=== PATIENT | female | born 1970 | race American Indian/Alaskan Native ===

== ENCOUNTER 2018-12-26 11:27 | Emergency (ER) | payer BC, OTHER ==
[~2018-12-26] VITALS: Ht 160 cm; Wt 84.4 kg
--- OUTSIDE RECORDS SUMMARY | ~2018-12-26 | XMS | Clinical Summary ---
Demographics + + + | Address | [address] | | | [place] [address] | + + + | Home Phone | | + + + | Preferred Language | Unknown | + + + | Marital Status | | + + + | Hindu Affiliation | Unknown | + + + | Race | Unknown | + + + | Ethnic Group | Unknown | + + + Author + + + | Author | [facility] [employer] [facility] | + + + | Organization | [facility] | + + + | Address | Unknown | + + + | Phone | Unavailable | + + + Support + + +---------+ + | Name | Relationship | Address | Phone | + + +---------+ + | Angie Rosas | ECON | Unknown | | + + +---------+ + | Anabell Ruiz | ECON | Unknown | | + + +---------+ + | Mayelin Muniz | ECON | Unknown | | + + +---------+ + | Detailed,Message | ECON | Unknown | | + + +---------+ + Care Team Providers + +------+ + | Care Smoking Tobacco Packer Hand Name | Role | Phone | + +------+ + | Deay Rubin | PP | | + +------+ + Allergies + + + + + + | Active Allergy | Reactions | Severity | Noted | Comments | | | | | Date | | + + + + + + | Codeine | Itching | Medium | 03/10/20 | | | | | | 18 | | + + + + + + Current Medications + + +--------+---------+------+------+-------+ | Prescription | Sig. | Disp. | Refills | Star | End | Statu | | | | | | t | Date | s | | | | | | Date | | | + + +--------+---------+------+------+-------+ | desmopressin 0.01 | 1 spray by Nasal | 1 | 11 | / | | Activ | | % SOLN | route 3 (three) | Bottle | | 2/20 | | e | | | times daily. | | | 18 | | | + + +--------+---------+------+------+-------+ Active Problems + + + | Problem | Noted Date | + + + | Empty sella | 04/22/2016 | + + + | Acquired hypothyroidism | 04/22/2016 | + + + | Diabetes insipidus (HCC) | 04/22/2016 | + + + Family History + + +------+ + | Medical History | Relation | Name | Comments | + + +------+ + | Cancer | Neg Hx | | | + + +------+ + | Diabetes type II | Neg Hx | | | + + +------+ + | Heart disease | Neg Hx | | | + + +------+ + Social History + +-------+ +--------+ + | Tobacco Use | Types | Packs/Day | Years | Date | | | | | Used | | + +-------+ +--------+ + | Former Smoker | | | | Quit: 04/22/2009 | + +-------+ +--------+ + + + +---------+ + | Alcohol Use | Drinks/We | oz/Week | Comments | | | ek | | | + + +---------+ + | Yes | | | rare | + + +---------+ + + + + | Sex Assigned at | Date Recorded | | | | + + + | Not on file | | + + + Last Filed Vital Signs + + + + | Vital Sign | Reading | Time Taken | + + + + | Blood Pressure | 120/82 | 03/10/2018 8:14 AM PDT | + + + + | Pulse | 65 | 03/10/2018 8:14 AM PDT | + + + + | Temperature | - | - | + + + + | Respiratory Rate | - | - | + + + + | Oxygen Saturation | 96% | 03/10/2018 8:14 AM PDT | + + + + | Inhaled Oxygen | - | - | | Concentration | | | + + + + | Weight | 83.9 kg (184 lb 14.4 | 03/10/2018 8:14 AM PDT | | | oz) | | + + + + | Height | - | - | + + + + | Body Mass Index | - | - | + + + + Plan of Treatment + + + + + | Health Maintenance | Due Date | Last Done | Comments | + + + + + | Vaccine: | | | | | Dtap/Tdap/Td (1 - | 9 | | | | Tdap) | | | | + + + + + | Cervical Cancer | | | | | Screening (Pap) | 0 | | | + + + + + | Vaccine: Influenza | | | | | (Season Ended) | 9 | | | + + + + + Results Not on filefrom Last 3 Months Insurance + +--------+ +------+-------+ + | Payer | Benefi | Subscriber | Type | Phone | Address | | | t Plan | ID | | | | | | / | | | | | | | Group | | | | | + +--------+ +------+-------+ + | /[facility] | YELLOW | [id number] | | | | | PLANS | [place] | | | | | + +--------+ +------+-------+ + | PREMERA | PREMER | [id number] | | | [address] [address] | | | A BLUE | | | | [place], [place] | | | [place]OSS | | | | [phone] | | | FED | | | | | | | PPO | | | | | + +--------+ +------+-------+ + + +--------+ +--------+ + + | Guarantor Name | Accoun | Relation to | Date | Phone | Billing Address | | | t Type | Patient | of | | | | | | | | | | + +--------+ +--------+ + + | LLOYD MUNIZ | Person | Self [birth year] | Home: | [address] | | [address] | | 1971 | [phone] | [place] [address] | | | josh | | | [phone] | | + +--------+ +--------+ + +"
--- OUTSIDE RECORDS SUMMARY | ~2018-12-26 | XMS | Clinical Summary ---
Demographics + + + | Address | [address] | | | [place] [address] | + + + | Home Phone | | + + + | Preferred Language | Unknown | + + + | Marital Status | | + + + | Latter Day Affiliation | Unknown | + + + | Race | Unknown | + + + | Ethnic Group | Unknown | + + + Author + + + | Author | [facility] | | | and [facility] | + + + | Organization | [facility] | | | and [facility] | + + + | Address | Unknown | + + + | Phone | Unavailable | + + + Care Team Providers + +------+ + | Care Fish Grader Name | Role | Phone | + +------+ + PP | Unavailable | + +------+ + Allergies Not on File Medications Not on file Active Problems Not on file Social History + +-------+ +--------+------+ | Tobacco Use | Types | Packs/Day | Years | Date | | | | | Used | | + +-------+ +--------+------+ | Never Assessed | | | | | + +-------+ +--------+------+ + + + | Sex Assigned at | Date Recorded | | | | + + + | Not on file | | + + + + + + + | Job Start Date | Occupation | Industry | + + + + | Not on file | Not on file | Not on file | + + + + + + + + | Travel History | Travel Start | Travel End | + + + + + + | No recent travel history available. | + + Plan of Treatment + + [...] + Results Not on filefrom Last 3 Months"
--- OUTSIDE RECORDS SUMMARY | ~2018-12-26 | XMS | Clinical Summary ---
Demographics + + + | Address | [address] | | | [place] [address] | + + + | Home Phone | | + + + | Preferred Language | Unknown | + + + | Marital Status | | + + + | Christian Affiliation | Unknown | + + + | Race | Unknown | + + + | Ethnic Group | Unknown | + + + Author + + + | Author | [facility] | | | and [facility] | + + + | Organization | [facility] | | | and [facility] | + + + | Address | Unknown | + + + | Phone | Unavailable | + + + Care Team Providers + +------+ + | Care Syrup Filterer Name | Role | Phone | + [...]
--- OUTSIDE RECORDS SUMMARY | ~2018-12-26 | XMS | Clinical Summary ---
Demographics + + + | Address | [address] | | | [place] [address] | + + + | Home Phone | | + + + | Preferred Language | Unknown | + + + | Marital Status | | + + + | Voodoo Affiliation | Unknown | + + + | Race | Unknown | + + + | Ethnic Group | Unknown | + + + Author + + + | Author | [facility] [employer] [facility] | + + + | Organization | [facility] | + + + | [...] Team Providers + +------+ + | Care Pebble Mill Operator Name | Role | Phone | + +------+ + | Deya Rubin | PP | | + +------+ [...] | | + +--------+ +------+-------+ + | /[employer] | YELLOW | [id number] | | | | | PLANS | [place] | | | | | + +--------+ +------+-------+ + | [employer] | PREMER | [id number] | | | [address] [address] | | | A BLUE | | | | [place], [place] | | | CROSS | | | | [phone] | | | FED | | | [...] | | al/[address]orge | | 1971 | [phone] | [place] [address] | | | josh | | | [address] | | + +--------+ +--------+ + +"
[~2018-12-26 11:27] MED LIST: DDAVP 0.0110 MCG/0.1 NAS; LEVOTHYROXINE25 MCG PO; ORTHO EVRA PAT1 EACH TD; VITAMIN D350000 UNIT PO
--- NOTE | 2018-12-26 14:01 | EKG ---
[facility] [address] [place] [address] Signed Sinus tachycardia Nonspecific ST abnormality Abnormal ECG When compared with ECG of 26-DEC-2018 11:40, (Unconfirmed) Vent. rate has decreased BY [address] less depressed in Inferior leads ST less depressed in Anterolateral leads Nonspecific T wave abnormality no longer evident in Inferior leads Nonspecific T wave abnormality no longer evident in Lateral leads Confirmed by RUBIN SCHMIDT MD ([id number]) on 12/26/2018 2:01:17 PM Electronically Signed By: RUBIN SCHMIDT MD 12/26/18 1401 PATIENT NAME: BRANDEN NEAL Electrocardiogram DATE OF : 68 PHYSICIAN: RUBIN SCHMIDT MD REPORT #: [id number] REPORT IS CONFIDENTIAL AND NOT TO BE RELEASED WITHOUT AUTHORIZATION
--- NOTE | 2018-12-26 14:01 | EKG ---
[facility] [address] [facility] [place] [address] Signed Supraventricular tachycardia Marked ST abnormality, possible inferior subendocardial injury Marked ST abnormality, possible anterolateral subendocardial injury Abnormal ECG No previous ECGs available Confirmed by RUBIN SCHMIDT MD ([id number]) on 12/26/2018 2:00:55 PM Electronically Signed By: RUBIN SCHMIDT MD 12/26/18 1401 PATIENT NAME: BRANDEN NEAL Electrocardiogram DATE OF : [birth year] PHYSICIAN: RUBIN SCHMIDT MD REPORT #: [id number] REPORT IS CONFIDENTIAL AND NOT TO BE RELEASED WITHOUT AUTHORIZATION
== END 2018-12-26 14:14 | disposition home or self-care (01) ==
LOC: ED 11:27
DX: I47.1 Supraventricular tachycardia (principal); E23.2 Diabetes insipidus; F41.9 Anxiety disorder, unspecified; Z79.899 Other long term (current) drug therapy
CPT/HCPCS: 80053; 84443; 84484; 85025; 93005; 93010; 96374; 99285-25; J0153

== ENCOUNTER 2019-05-30 04:11 | Emergency (ER) | payer BC, OTHER ==
[~2019-05-30] VITALS: Ht 160 cm; Wt 90.7 kg
--- NOTE | 2019-05-31 13:08 | EKG ---
[facility] [address] [place] [address] Signed Supraventricular tachycardia Abnormal ECG When compared with ECG of 26-DEC-2018 11:42, Wide QRS tachycardia has replaced Sinus rhythm Vent. rate has increased BY 112 BPM Confirmed by RUBIN SCHMIDT MD ([id number]) on 05/31/2019 1:07:53 PM Electronically Signed By: RUBIN SCHMIDT MD 05/31/19 1308 PATIENT NAME: BRANDEN NEAL Electrocardiogram DATE OF : [birth year] PHYSICIAN: RUBIN SCHMIDT MD REPORT #: [id number] REPORT IS CONFIDENTIAL AND NOT TO BE RELEASED WITHOUT AUTHORIZATION
--- NOTE | 2019-05-31 13:08 | EKG ---
[facility] [address] [place] [address] Signed Normal sinus rhythm Nonspecific ST abnormality Abnormal ECG When compared with ECG of 30-MAY-2019 04:17, (Unconfirmed) Sinus rhythm has replaced Wide QRS tachycardia Vent. rate has decreased BY 138 BPM Confirmed by RUBIN SCHMIDT MD ([id number]) on 05/31/2019 1:08:00 PM Electronically Signed By: RUBIN SCHMIDT MD 05/31/19 1308 PATIENT NAME: BRANDEN NEAL Electrocardiogram DATE OF : [birth year] PHYSICIAN: RUBIN SCHMIDT MD REPORT #: [id number] REPORT IS CONFIDENTIAL AND NOT TO BE RELEASED WITHOUT AUTHORIZATION
== END 2019-05-30 04:49 | disposition home or self-care (01) ==
LOC: ED 04:11
DX: I47.1 Supraventricular tachycardia (principal)
CPT/HCPCS: 93005; 93010; 99284-25

== ENCOUNTER 2023-01-17 06:28 | Day surgery (SDC) | payer BC, OTHER ==
[~2023-01-17] VITALS: Ht 160 cm; Wt 109.1 kg
[2023-01-17 06:46] VITALS: BP 132/67
[2023-01-17] MEDS ORDERED: LEVOTHYROXINE25 MC1 PO (06:49)
--- NOTE | 2023-01-17 08:14 | NUR ---
PT ALERT, ORIENTED AND SUPPORTED BY HER WHO IS LEAVING TO GET KIDS TO SCHOOL. HE WILL RETURN FOR DC. PT IS HERE FOR HER FIRST SCOPE. ENCOURAGEMENT GIVEN, NETWORKS COMPUTER CONSULTANTROBERT LINDQUIST HERE FOR PT. GAVE BLESSING AND WILL FOLLOW
--- NOTE | 2023-01-17 08:14 | NUR ---
01/17/23 0814 Jesusita Bey 0808: PT ARRIVES TO PACU SLEEPY, BUT AROUSABLE TO STIMULI.
[2023-01-17 08:38] VITALS: BP 140/93
--- NOTE | 2023-01-17 18:30 | OR ---
[facility] [address] [place], [place] [address] Signed DATE OF OPERATION: 01/17/2023 SURGEON: Amber Flor MD PREOPERATIVE DIAGNOSES: 1. Colon screening. 2. Idiopathic diabetes insipidus. POSTOPERATIVE DIAGNOSES: 1. Sigmoid diverticulosis. 2. Small polyp of cecum (excised). PROCEDURE: Total colonoscopy to cecum with cold morcellation polypectomy x1. ANESTHESIA: Intravenous sedation; fentanyl 150 mcg and Versed 5 mg. INDICATION: This 52-year-old [place]ron[place] woman is a patient of KARON James of the [facility]. She has underlying diabetes insipidus of unknown etiology. She is referred for screening colonoscopy. She has no symptoms of bleeding, diarrhea or constipation and no family history of colon cancer that she is aware of. She understands the risk of bleeding, infection, and perforation related to colonoscopy and wished to proceed. FINDINGS: The prep was good. Complete colonoscopy was undertaken of the cecum without question. She had a small polyp in the area of the cecum, more accurately the ileocecal valve actually, this was excised. It may be hyperplastic or possibly adenomatous. The remaining colon was normal except for diverticular changes of the sigmoid. PROCEDURE IN DETAIL: The patient was brought to the endoscopy suite and placed in the lateral decubitus position, given intravenous sedation to the point of slurred speech and nystagmus with full cardiopulmonary monitoring. Digital rectal examination was normal. An Olympus video colonoscope was passed in the rectum and manipulated throughout the colon noting diverticula of the sigmoid and left colon. Scope was ultimately passed to the cecum which was intubated fully. Irrigation was undertaken showing no sign of abnormality. The scope was withdrawn and in the mucosa of the ileocecal valve was an Electronically Signed By: AMBER FLOR MD 01/17/23 1830 PATIENT NAME: BRANDEN NEAL OPERATIVE REPORT DATE OF : [birth year] REPORT #: [id number] PHYSICIAN: AMBER FLOR MD PCP: SABRINA HILTON REPORT IS CONFIDENTIAL AND NOT TO BE RELEASED WITHOUT AUTHORIZATION [facility] [address] [place], [place] [address] Signed area consistent with polyp including on narrow band imaging. This area was excised. Cold morcellation technique was used. The scope was then withdrawn and remaining colon was normal except for diverticular changes of sigmoid and left colon. Retroflexed view was normal as well. The scope was removed and the patient was taken to the recovery room in good condition. CONCLUDING DIAGNOSIS: Polyp of the ileocecal valve/cecum, unknown if hyperplastic or adenomatous. PLAN: If adenomatous polyp was detected, repeat colonoscopy in three years. If polyp was hyperplastic or lymphoid aggregate, 10 years would be fine unless symptoms should occur. She will return to the ongoing care of KARON James at the [facility]. MD BRUNO Iraheta/GISEL /[id number] cc: Sabrina Hilton Copies: SABRINA HILTON ~ Electronically Signed By: AMBER FLOR MD 01/17/23 1830 PATIENT NAME: BRANDEN NEAL OPERATIVE REPORT DATE OF : 68 REPORT #: [id number] PHYSICIAN: AMBER FLOR MD PCP: SABRINA HILTON REPORT IS CONFIDENTIAL AND NOT TO BE RELEASED WITHOUT AUTHORIZATION
--- NOTE | 2023-01-19 11:24 | PATH ---
[facility] [address] [place], [place] [address] Signed SPECIMEN(S): A CECUM POLYP SPECIMEN SOURCE: A. CECUM POLYP CLINICAL HISTORY: Colon screening. Diverticulosis, cecal polyp. FINAL PATHOLOGIC DIAGNOSIS: Cecum polyp: - Benign polypoid colonic mucosa with submucosal adipose tissue, consistent with submucosal lipoma. - Negative for atypical features or evidence of malignancy. JVR:jujuh:[id number] MICROSCOPIC EXAMINATION: Histologic sections of all submitted blocks are examined by light microscopy. These findings, together with the gross examination, support the pathologic diagnosis. GROSS DESCRIPTION: The specimen, labeled and designated "Flavio, 1" and designated on the requisition "cecum polypectomy," is received in formalin and consists of one alvarenga soft tissue fragment, 0.3 cm. Entirely submitted in (A1). AC (under the direct supervision of a pathologist) The Gross Description was prepared using a voice recognition system. The report was reviewed for accuracy; however, sound-alike word errors, addition and/or deletions may occur. If there is any question about this report, please contact Client Services. PERFORMING LABORATORY: The technical component was performed by [facility], [address] [place] [id number] (CLIA# [id number]). Professional interpretation was performed by [facility], [address] [place] [id number] (CLIA#: [id number]). Diagnostician: Rusty Rich MD Pathologist Electronically Signed 01/19/2023 PATIENT NAME: BRANDEN NEAL PATHOLOGY DATE OF : [birth year] REPORT #: [id number] PHYSICIAN: LEDA SEALS PCP: JONY HILTON REPORT IS CONFIDENTIAL AND NOT TO BE RELEASED WITHOUT AUTHORIZATION [address] [address] Signed Copies: ~ PATIENT NAME: BRANDEN NEAL PATHOLOGY DATE OF : [birth year] REPORT #: [id number] PHYSICIAN: LEDA SEALS PCP: JONY HILTON REPORT IS CONFIDENTIAL AND NOT TO BE RELEASED WITHOUT AUTHORIZATION
== END 2023-01-17 08:45 | disposition home or self-care (01) ==
LOC: DS 06:28
PROVIDERS: ATTEND Surgery
DX: Z12.11 Encounter for screening for malignant neoplasm of colon (principal); K57.30 Diverticulosis of large intestine without perforation or abscess without bleeding; K63.5 Polyp of colon; E23.2 Diabetes insipidus; E66.9 Obesity, unspecified; Z68.41 Body mass index [BMI] 40.0-44.9, adult; Z86.16 Personal history of COVID-19; Z88.5 Allergy status to narcotic agent; Z79.899 Other long term (current) drug therapy
CPT/HCPCS: 99153; G0500; J2250; J3010; J7121